=== PATIENT | female | born 1940 | race Caucasian/White ===

== ENCOUNTER 2021-09-20 09:41 | Outpatient (CLI) | payer MEDICARE | END 2021-09-20 09:42 | disposition home or self-care (01) | LOC: CSHMAMMO 09:41 | PROVIDERS: ATTEND Internal Medicine | DX: Z12.31 Encounter for screening mammogram for malignant neoplasm of breast (principal); Z13.820 Encounter for screening for osteoporosis; Z78.0 Asymptomatic menopausal state; Z80.3 Family history of malignant neoplasm of breast | CPT/HCPCS: 77063; 77067; 77080 ==

== ENCOUNTER 2022-09-26 08:11 | Outpatient (CLI) | payer MEDICARE, OTHER | END 2022-09-26 08:12 | disposition home or self-care (01) | LOC: CSHMAMMO 08:11 | PROVIDERS: ATTEND Internal Medicine | DX: Z12.31 Encounter for screening mammogram for malignant neoplasm of breast (principal); Z80.3 Family history of malignant neoplasm of breast | CPT/HCPCS: 77063; 77067 ==

== ENCOUNTER 2023-11-06 10:18 | Outpatient (CLI) | payer MEDICARE | END 2023-11-06 10:19 | disposition home or self-care (01) | LOC: CSHMAMMO 10:18 | PROVIDERS: ATTEND Internal Medicine | DX: Z12.31 Encounter for screening mammogram for malignant neoplasm of breast (principal); Z80.3 Family history of malignant neoplasm of breast; Z91.89 Other specified personal risk factors, not elsewhere classified | CPT/HCPCS: 77063; 77067 ==

== ENCOUNTER 2024-03-14 07:34 | Outpatient (CLI) | payer OTHER ==
[2024-03-14] MEDS ORDERED: Iopamidol 300 61% 100 ML VIAL FS ONE (10:52)
== END 2024-03-14 07:35 | disposition home or self-care (01) ==
LOC: CSHCT 07:34
PROVIDERS: ATTEND Internal Medicine
DX: R31.0 Gross hematuria (principal); N20.0 Calculus of kidney
CPT/HCPCS: 74178; Q9967

== ENCOUNTER 2024-11-13 11:14 | Outpatient (CLI) | payer OTHER | END 2024-11-13 11:15 | disposition home or self-care (01) | LOC: CSHRAD 11:14 | PROVIDERS: ATTEND Internal Medicine | DX: W19.XXXA Unspecified fall, initial encounter (principal); M16.0 Bilateral primary osteoarthritis of hip | CPT/HCPCS: 72170; 73521 ==